=== PATIENT | female | born 1935 | race Caucasian/White ===

== ENCOUNTER → 2024-04-09 | Outpatient (CLI) | payer MEDICARE, BC, SELFPAY ==
[2024-04-09 09:33] LABS: Basophils # (Auto) 0.1 Thou/mm3 (0.0-0.2); Basophils % (Auto) 1 % (0-2.5); Eosinophils # (Auto) 0.1 Thou/mm3 (0.0-0.5); Eosinophils % (Auto) 1 % (0-10); Hematocrit 35.1 % (36.0-46.0); Hemoglobin 11.8 g/dL (12.0-16.0); Immature Granulocytes % (Auto) 0 % (0-0); Immature Granulocytes Auto 0.02 Thou/mm3 (0.00-0.00); Lymphocytes # (Auto) 3.2 Thou/mm3 (1.0-4.8); Lymphocytes % (Auto) 39 % (10-50); Mean Corpuscular HGB Conc 33.6 g/dl (31.0-37.0); Mean Corpuscular Hemoglobin 30.6 pg (25.0-35.0); Mean Corpuscular Volume 91 fL (80-100); Monocytes # (Auto) 0.8 Thou/mm3 (0.0-0.8); Monocytes % (Auto) 10 % (0-12); Neutrophils # (Auto) 4.1 Thou/mm3 (1.8-7.7); Neutrophils % (Auto) 49 % (37-80); Nucleated Red Blood Cell % 0 /100 WBC (0); Platelet Count 363 Thou/mm3 (140-440); RDW Standard Deviation 43.8 fL (36.4-46.3); Red Blood Count 3.85 Miln/mm3 (4.00-5.20); White Blood Count 8.3 Thou/mm3 (3.6-11.0)
[2024-04-09 09:43] LABS: Glucose Estimated Average 143 mg/dL (80-131); Hemoglobin A1C 6.6 % Hgb (4.8-6.0)
[2024-04-09 09:45] LABS: Creatinine MALB Rnd Ur 74 mg/dL (30-125); Microalbumin Creat Ratio 5 mg/gCrea (<30); Microalbumin, Random Urine 4 mg/L (0-300)
[2024-04-09 09:45] LABS: Alanine Aminotransferase 15 U/L (10-49); Albumin, Serum 4.5 gm/dL (3.4-4.8); Alkaline Phosphatase 56 U/L (46-116); Anion Gap 7 (7-16); Aspartate Amino Transferase 19 U/L (0-34); BUN/Creatinine Ratio 17 Ratio (12-20); Bilirubin,Total 0.6 mg/dL (0.3-1.2); Blood Urea Nitrogen 17 mg/dL (9-23); Calcium 10.4 mg/dL (8.3-10.6); Calcium (Corrected) 10.4 mg/dL (8.5-10.1); Carbon Dioxide 26.5 mMol/L (20.0-31.0); Cardiac Risk Estimate 2.7 RATIO (3.7-5.6); Chloride 102 mMol/L (98-107); Cholesterol 143 mg/dL (132-200); Globulin 2.2 gm/dL (2.3-3.5); Glucose 158 mg/dL (74-106); HDL Cholesterol 53 mg/dL (40-60); LDL Cholesterol,Calculated 67 mg/dL (0-130); Osmolality,Calculated 274 (275-295); Phosphorous 4.5 mg/dL (2.4-5.1); Potassium 4.4 mMol/L (3.4-5.1); Sodium 135 mMol/L (136-145); Total Protein 6.7 gm/dL (5.7-8.2); Triglycerides 114 mg/dL (30-150); eGFR 55 See Note
== END | disposition home or self-care (01) ==
LOC: COPL 08:29
PROVIDERS: PCP Family Medicine; Referring Provider Specialist; Visit Provider Internal Medicine Endocrinology, Diabetes & Metabolism
DX: E11.65 Type 2 diabetes mellitus with hyperglycemia (principal); I11.0 Hypertensive heart disease with heart failure
CPT/HCPCS: 36415; 80053; 80061; 82043; 82570; 83036; 84100; 85025

== ENCOUNTER 2024-04-15 09:30 | Emergency (ER) | payer MEDICARE, BC, SELFPAY ==
[2024-04-15 09:50] VITALS: BP 182/73; PULSE 68; RESP 18; TEMP 36.6; O2SAT 99; BMI 25.0
--- NOTE | 2024-04-15 10:08 | EKG_ITS ---
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
--- NOTE | 2024-04-15 10:11 | EDNOTE_ITS ---
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 Patient states while sitting in the car, just prior to walking in to the doctors office, she felt flushed and my head and face were on fire . States she was able to walk in to the doctors office where she sat on a chair and staff called 911. Per medics, when they arrived patient was hypertensive SBP 200's and repeat b/p was 174/108. Prehospital BS 179. On arrival to ED patient reports feeling improved and has no complaints. Denies fevers, chills, chest pain, cough, shortness of breath, abdominal pain, n/v/d, or urinary symptoms. Related Data Home Medications ?Medication ?Instructions ?Recorded ?Confirmed Metformin Hcl 1,000 mg PO BID DIABETES ##0 03/08/09 diltiazem HCl 240 mg 240 mg PO HS High Blood Pressure 03/08/09 capsule,extended release 24 hr ##0 (Cardizem CD) hydrochlorothiazide 25 mg tablet 25 mg PO QOD HBP/ DIURETIC #0 tabs 04/29/14 insulin glargine 100 unit/mL (3 60 unit subcut QDAY Diabetes ##0 04/29/14 mL) subcutaneous pen (Lantus Solostar U-100 Insulin) metoprolol succinate 25 mg 25 mg PO QDAY High Blood Pressure 04/29/14 tablet,extended release 24 hr ##0 (Toprol XL) Losartan Potassium * (COZAAR *) 50 mg PO BID #0 tabs 03/22/16 glipizide 5 mg tablet mg PO QDAY Diabetes ##0 03/22/16 glipizide 5 mg tablet 2.5 mg PO HS #0 tabs 03/23/16 Allergies Allergy/AdvReac Type Severity Reaction Status Date / Time Penicillins Allergy Severe Rash Verified 03/28/22 11:30 Review of Systems Review of Systems Narrative Review of Systems: Gen: No fever, no chills, no weight loss EYES: No discharge, no visual changes, no pain HEENT: No ear pain, no congestion, no sore throat PULM: no shortness of breath, no cough, no congestion CV: No chest pain, no dyspnea on exertion, no palpitations, no chest tightness GI: No nausea, no vomiting, no diarrhea, no pain, no constipation : No frequency, no urgency,? no dysuria Musc/skel: No joint pain, no back pain Skin: No rash, no ecchymosis, no lesions Psyc: No hallucinations, no depression Heme/Lymph: No easy bleeding or bruising tendencies Neuro: No weakness, no headache Past Medical History Past Medical History CARDIAC: Positive Cardiac Disorders, Cardiac Arrhythmia and Atrial Fibrillation; Negative Congestive Heart Failure RESPIRATORY: Negative Chronic Obstructive Pulmonary Disease (COPD) GENITOURINARY: Negative Renal Disease ENDOCRINE: Negative Diabetes Mellitus Type 1 or Diabetes Mellitus Type 2 OTHER HISTORY: Negative Blood Transfusions Surgical History SURGICAL: Positive Pacemaker Social History SMOKING STATUS: Never smoker ED Exam Narrative Physical exam: GENERAL APPEARANCE: AxOx4, no obvious distress, nontoxic appearing HEENT: NC, AT. MMM. EOMI, clear conjunctiva, oropharynx clear. NECK: Supple without lymphadenopathy. No stiffness or restricted ROM. HEART: Normal rate and regular rhythm, normal S1/S1, no m/r/g LUNGS: CTAB, moving air well. No crackles or wheezes are heard. ABDOMEN: Soft, nontender, nondistended with good bowel sounds heard. BACK: No midline C/T/L spine pain or deformity, No CVAT, no obvious deformity. EXTREMITIES: Without cyanosis, clubbing or edema. MUSCULOSKELETAL: FROM of all major joints, no chest tenderness NEUROLOGICAL: Grossly nonfocal. Alert and oriented, moving all 4 extremities. CN not formally tested but appear grossly intact. Skin: Warm and dry without any rash. Course Quality Measures none Orders Category Date Time Status EKG (ED ONLY) *Do not use* NOW Care 04/15/24 10:08 Completed EKG (ED Only) Stat Exams 04/15/24 10:08 Draft CBC Stat Lab 04/15/24 11:57 Completed CMP [Comprehensive Metabolic Panel] Stat Lab 04/15/24 11:57 Completed Troponin I Stat Lab 04/15/24 11:57 Completed Reevaluation(s) Reevaluation #1: Patient has no complaints at this time, discussed plan to perform ekg and labs. Time: 10:05 Reevaluation #2: Patient reports she was going to see her sheriff's officer today to get new glasses. Patient remains clinically stable throughout the emergency department visit. We reviewed all the results, analysis, and treatment plans. Patient is amenable to discharge. Strict return precautions were outlined. Patient was discharged in stable condition. Time: 12:58 Vital Signs Vital signs: Vital Signs Temperature 97.9 F 04/15/24 09:50 Pulse Rate 68 04/15/24 09:50 Respiratory Rate 18 04/15/24 09:50 Blood Pressure 182/73 H 04/15/24 09:50 Pulse Oximetry (%) 99 04/15/24 09:50 Oxygen Delivery Method Room Air 04/15/24 09:50 Pulse ox is 99% on room air which is adequate. [facility] Patient data External records reviewed:: [facility] previous records (I reviewed ED visit on 03/28/2022 for closed head injury ) and EMS form Clinical information provided by:: patient and EMS Social determinants that could affect healthcare access:: none Patient has the following chronic illnesses:: AFib, NE, s/p pacemaker placement, diabetes How is presenting disease/condition affected by chronic disease/condition?: e xacerbated by Evaluation data The following diagnostics were reviewed and interpreted by me:: EKG tracing(s) (Normal sinus rhythm, HR 63, no acute ST or T-wave changes, no STEMI. ) Lab and/or radiology exams considered but not ordered:: None Interpretation Summary: As noted above Medications Medications considered but not ordered:: None Medication administrations:: None Consultations Consultation(s) initiated? (list below): No Diagnosis Differential Diagnosis ED Complaint MDM: Dehydration, HAJA, electrolyte abnormalities Most likely diagnosis given after review of the tests above:: Pre-syncope Admission Indicated Admission indicated?: not indicated Explain why admission is indicated or not indicated:: Feels improved, does not meet admission criteria. Admission Request Was there a request for admission?: No Disposition Plan Disposition Plan: Discharge Discharge Attestation Discharge Attestation: The patient and all family members were given an opportunity to ask questions and understood the discharge instructions. Discharge instructions specifically effects, indications for sooner follow up or return to the emergency department, and the expected course of current diagnosis. Patient condition: Stable Medical Decision Making Differential Diagnosis Differential Diagnosis: Dehydration, HAJA, electrolyte abnormalities Lab Data 04/15/24 11:57 04/15/24 11:57 Labs: Lab Results 04/15/24 Range/Units 11:57 WBC 7.3 (3.6-11.0) Thou/mm3 RBC 3.68 L (4.00-5.20) Miln/mm3 Hgb 11.2 L (12.0-16.0) g/dL Hct 32.4 L (36.0-46.0) % MCV 88 (80-100) fL MCH 30.4 (25.0-35.0) pg MCHC 34.6 (31.0-37.0) g/dl RDW Std Deviation 42.3 (36.4-46.3) fL Plt Count 302 D (140-440) Thou/mm3 Neut % (Auto) 50 (37-80) % Lymph % (Auto) 41 (10-50) % [place] % (Auto) 8 (0-12) % Eos % (Auto) 0 (0-10) % Baso % (Auto) 1 (0-2.5) % Neut # (Auto) 3.7 (1.8-7.7) Thou/mm3 Lymph # (Auto) 3.0 (1.0-4.8) Thou/mm3 [place] # (Auto) 0.6 (0.0-0.8) Thou/mm3 Eos # (Auto) 0.0 (0.0-0.5) Thou/mm3 Baso # (Auto) 0.1 (0.0-0.2) Thou/mm3 Immature Gran # (Auto) 0.02 H (0.00-0.00) Thou/mm3 Absolute Nucleated RBC 0.00 (0.00-0.00) Thou/mm3 Immature Gran % 0 (0-0) % Nucleated RBC % 0 (0) /100 WBC Sodium 133 L (136-145) mMol/L Potassium 3.4 (3.4-5.1) mMol/L Chloride 99 (98-107) mMol/L Carbon Dioxide 23.9 (20.0-31.0) mMol/L Anion Gap 10 (7-16) BUN 14 (9-23) mg/dL Creatinine 0.9 (0.6-1.3) mg/dL Estim Creat Clear Calc 40.4 L (>60) mL/min eGFR > 60 (60 - ) See Note BUN/Creatinine Ratio 16 (12-20) Ratio Glucose 115 H (74-106) mg/dL Calculated Osmolality 267 L (275-295) Calcium 9.9 (8.3-10.6) mg/dL Corrected Calcium 9.9 (8.5-10.1) mg/dL Total Bilirubin 0.7 (0.3-1.2) mg/dL AST 19 (0-34) U/L ALT 13 (10-49) U/L Alkaline Phosphatase 50 (46-116) U/L Troponin I < 0.020 (0.0-0.045) ng/mL Total Protein 6.6 (5.7-8.2) gm/dL Albumin 4.4 (3.4-4.8) gm/dL Globulin 2.2 L (2.3-3.5) gm/dL Albumin/Globulin Ratio 2.0 (1.2-2.2) Discharge Plan Plan Patient Disposition: HOME (Self Care) Prescriptions/Referrals Prescriptions/Med Rec: No Action diltiazem HCl [Cardizem CD] 240 MG capsule,extended release 24hr 240 mg PO HS Qty: 0 Metformin Hcl 1,000 MG tablet 1,000 mg PO BID Qty: 0 metoprolol succinate [Toprol XL] 25 MG tablet extended release 24 hr 25 mg PO QDAY Qty: 0 insulin glargine [Lantus Solostar U-100 Insulin] 3 ML insulin pen 60 unit Sub-Q QDAY Qty: 0 hydrochlorothiazide 25 MG tablet 25 mg PO QOD Qty: 0 glipizide 5 MG tablet PO QDAY Qty: 0 Losartan Potassium * (COZAAR *) 50 MG tablet 50 mg PO BID Qty: 0 glipizide 5 MG tablet 2.5 mg PO HS Qty: 0 Referrals: Michaela Palma MD [Primary Care Provider] - In 1 week Problem List Clinical Impression: Pre-syncope Patient/Caregiver Discharge Instructions Education Materials: ED Near-Fainting, Uncertain Cause Additional Instructions: Follow-up your primary doctor in 2-3 days for recheck. You can return to the emergency department sooner if symptoms worsen or for any new or concerning issues Print Language: [place] African Stand Alone Forms: Marlin Award Info., Patient Portal Info Letter
[2024-04-15 12:23] LABS: Basophils # (Auto) 0.1 Thou/mm3 (0.0-0.2); Basophils % (Auto) 1 % (0-2.5); Eosinophils % (Auto) 0 % (0-10); Hematocrit 32.4 % (36.0-46.0); Hemoglobin 11.2 g/dL (12.0-16.0); Immature Granulocytes % (Auto) 0 % (0-0); Immature Granulocytes Auto 0.02 Thou/mm3 (0.00-0.00); Lymphocytes % (Auto) 41 % (10-50); Mean Corpuscular HGB Conc 34.6 g/dl (31.0-37.0); Mean Corpuscular Hemoglobin 30.4 pg (25.0-35.0); Mean Corpuscular Volume 88 fL (80-100); Monocytes # (Auto) 0.6 Thou/mm3 (0.0-0.8); Monocytes % (Auto) 8 % (0-12); Neutrophils # (Auto) 3.7 Thou/mm3 (1.8-7.7); Neutrophils % (Auto) 50 % (37-80); Nucleated Red Blood Cell % 0 /100 WBC (0); Platelet Count 302 Thou/mm3 (140-440); RDW Standard Deviation 42.3 fL (36.4-46.3); Red Blood Count 3.68 Miln/mm3 (4.00-5.20); White Blood Count 7.3 Thou/mm3 (3.6-11.0)
[2024-04-15 12:38] VITALS: BP 138/84; PULSE 72; RESP 17; TEMP 36.4; O2SAT 95
[2024-04-15 12:49] LABS: Alanine Aminotransferase 13 U/L (10-49); Albumin, Serum 4.4 gm/dL (3.4-4.8); Alkaline Phosphatase 50 U/L (46-116); Anion Gap 10 (7-16); Aspartate Amino Transferase 19 U/L (0-34); BUN/Creatinine Ratio 16 Ratio (12-20); Bilirubin,Total 0.7 mg/dL (0.3-1.2); Blood Urea Nitrogen 14 mg/dL (9-23); Calcium 9.9 mg/dL (8.3-10.6); Calcium (Corrected) 9.9 mg/dL (8.5-10.1); Carbon Dioxide 23.9 mMol/L (20.0-31.0); Chloride 99 mMol/L (98-107); Creatinine (Component) 0.9 mg/dL (0.6-1.3); Estimated Creatinine Clearance 40.4 mL/min (>60); Globulin 2.2 gm/dL (2.3-3.5); Glucose 115 mg/dL (74-106); Osmolality,Calculated 267 (275-295); Potassium 3.4 mMol/L (3.4-5.1); Sodium 133 mMol/L (136-145); Total Protein 6.6 gm/dL (5.7-8.2); Troponin I < 0.020 ng/mL (0.0-0.045); eGFR > 60 See Note
[2024-04-15 13:07] VITALS: BP 159/62; PULSE 76; RESP 14; TEMP 36.6; O2SAT 98
== END 2024-04-15 13:08 | disposition home or self-care (01) ==
PROVIDERS: Emergency Provider Emergency Medicine; PCP Family Medicine
DX: R55 Syncope and collapse (principal); I44.0 Atrioventricular block, first degree; I48.91 Unspecified atrial fibrillation; I25.2 Old myocardial infarction; Z95.0 Presence of cardiac pacemaker
CPT/HCPCS: 36415; 80053; 84484; 85025; 93005; 99283

== ENCOUNTER → 2024-05-02 | Outpatient (CLI) | payer MEDICARE, BC, SELFPAY ==
--- NOTE | 2024-05-02 10:21 | XR_ITS ---
Examination: Shoulder,right, 3 views Technique: Shoulder AP internal rotation, AP external rotation, Y view shoulder, 3 views Exam date and time :May 02, 2024 1025 hours INDICATIONS: Right shoulder pain beginning 4 days ago. FINDINGS: Moderate to advanced narrowing glenohumeral joint No fracture or shoulder dislocation No AC joint separation IMPRESSION: Moderate to advanced osteoarthritis glenohumeral joint
== END | disposition home or self-care (01) ==
PROVIDERS: PCP Physician Assistant; Referring Provider Physician Assistant; Visit Provider Physician Assistant
DX: M19.011 Primary osteoarthritis, right shoulder (principal)
CPT/HCPCS: 73030

== ENCOUNTER 2024-06-06 05:49 | Emergency (ER) | payer MEDICARE, BC, SELFPAY ==
[2024-06-06 06:00] VITALS: BP 142/62; PULSE 77; RESP 20; TEMP 36.6; O2SAT 99
--- NOTE | 2024-06-06 06:04 | PD.EDADULT ---
ED General RME/HPI General Chief complaint: Dizziness Stated complaint: DIZZINESS Time Seen by Provider: 06/06/24 06:26 Arrival date/time: 06/06/24 05:49 RME / HPI RME / HPI narrative: DR. RUDD MAIN ED EVALUATION: 88 year old female with past medical history significant for vertigo, atrial fibrillation, MD, s/p pacemaker placement, diabetes presents to the Emergency Department BIB from home with complaints of dizziness. Symptoms are moderate. Associated symptoms include nausea. Patient denies any tobacco, alcohol, or substance use. Related Data Home Medications ?Medication ?Instructions ?Recorded ?Confirmed Metformin Hcl 1,000 mg PO BID DIABETES ##0 03/08/09 diltiazem HCl 240 mg 240 mg PO HS High Blood Pressure 03/08/09 capsule,extended release 24 hr ##0 (Cardizem CD) hydrochlorothiazide 25 mg tablet 25 mg PO QOD HBP/ DIURETIC #0 tabs 04/29/14 insulin glargine 100 unit/mL (3 60 unit subcut QDAY Diabetes ##0 04/29/14 mL) subcutaneous pen (Lantus Solostar U-100 Insulin) metoprolol succinate 25 mg 25 mg PO QDAY High Blood Pressure 04/29/14 tablet,extended release 24 hr ##0 (Toprol XL) Losartan Potassium * (COZAAR *) 50 mg PO BID #0 tabs 03/22/16 glipizide 5 mg tablet mg PO QDAY Diabetes ##0 03/22/16 glipizide 5 mg tablet 2.5 mg PO HS #0 tabs 03/23/16 Previous Rx's ?Medication ?Instructions ?Recorded meclizine 25 mg tablet 25 mg PO BID PRN dizziness #10 tabs 06/06/24 Allergies Allergy/AdvReac Type Severity Reaction Status Date / Time Penicillins Allergy Severe Rash Verified 03/28/22 11:30 Review of Systems Review of Systems Systems Reviewed: All systems reviewed, normal except as documented Narrative Review of Systems: GEN: No fever, no chills, no weight loss EYES: No discharge, no visual changes, no pain HEENT: No ear pain, no congestion, no sore throat PULM: No shortness of breath, no cough, no congestion CV: No chest pain, no dyspnea on exertion, no palpitations GI: + nausea, no vomiting, no diarrhea, no pain, no constipation : No frequency, no urgency and no dysuria MUSC/SKEL: No joint pain, no back pain SKIN: No rash PSYCH: No hallucinations, no depression HEME/LYMPH: No easy bleeding or bruising tendencies NEURO: No weakness, no headache, + dizziness Past Medical History Past Medical History CARDIAC: Positive Cardiac Arrhythmia and Atrial Fibrillation; Negative Cardiac Disorders or Congestive Heart Failure RESPIRATORY: Negative Chronic Obstructive Pulmonary Disease (COPD) or Asthma GENITOURINARY: Negative Renal Disease ENDOCRINE: Negative Diabetes Mellitus Type 1 or Diabetes Mellitus Type 2 HEMATOLOGIC: Negative Sickle Cell Disease OTHER HISTORY: Negative Blood Transfusions Surgical History SURGICAL: Positive Pacemaker Social History SMOKING STATUS: Never smoker ED Exam Narrative Physical exam: GENERAL APPEARANCE: alert and oriented x 4, well-developed, well-nourished, no acute distress VITALS: All vitals were reviewed and the pulse ox is 95% on room air, which is normal according to my interpretation. HEENT: Normocephalic, atraumatic; pupils equal, round, reactive to light; EOMI; mucous membranes pink, moist; oropharynx clear NECK: Supple LUNGS: CTABL; no wheezes, no rales, no rhonchi HEART: Regular rate, regular rhythm; normal S1, S2; no murmurs ABDOMEN: non distended; normal BS; soft, no tenderness, no guarding, no rebound; no masses, no organomegaly, no hernia BACK: no CVA tenderness EXTREMITIES: atraumatic; no edema NEUROLOGIC: awake; alert and oriented x4; cranial nerves II-XII grossly intact; no focal sensory or motor deficits PSYCHIATRIC: appropriate mood and affect SKIN: warm, dry, normal color; no rashes Course Quality Measures none Orders Category Date Time Status CT Screening NOW Care 06/06/24 06:51 Active [facility] NOW Care 06/06/24 06:48 Active EKG (ED ONLY) *Do not use* NOW Care 06/06/24 06:48 Completed Diabetic [Diet Carbohydrate Consistent] Diet 06/06/[address] angio carotid w head w Stat Exams 06/06/24 09:[address] head/brain wo con Stat Exams 06/06/24 06:48 Completed EKG (ED Only) Stat Exams 06/06/24 06:48 Draft XR chest 1V portable Stat Exams 06/06/24 06:48 Completed B-Type Natriuretic Peptide Stat Lab 06/06/24 07:08 Completed CBC Stat Lab 06/06/24 07:08 Completed Comprehensive Metabolic Panel Stat Lab 06/06/24 07:08 Completed Lipase Stat Lab 06/06/24 07:08 Completed Magnesium Stat Lab 06/06/24 07:08 Completed Partial Thromboplastin Time Stat Lab 06/06/24 07:08 Completed Prothrombin Time with INR Stat Lab 06/06/24 07:08 Completed Troponin I Stat Lab 06/06/24 07:08 Completed UA, C/S IF [Urinalysis, C/S if Indicated] Stat Lab 06/06/24 07:40 Completed KCL 10% Liq UDC 15 ML Med 06/06/24 07:49 Discontinued 40 meq PO X1 ONE Magnesium Sulfate 2 GM Ivpb [Magnesium Sulfate Ivpb] Med 06/06/24 07:50 Discontinued 2 gm in 50 ml IV X1 Meclizine HCl [Antivert] Med 06/06/24 06:51 Discontinued 25 mg PO X1 ONE Ondansetron Inj [Zofran Inj] Med 06/06/24 06:51 Discontinued 4 mg IV X1 ONE POTASSIUM CHL 10 mEq IVPB [Kcl Ivpb] Med 06/06/24 07:50 Discontinued 10 meq in 100 ml IV Q1H Late Tray Request Routine Oth 06/06/24 08:22 Active Vital Signs Vital signs: Vital Signs Temperature 97.8 F 06/06/24 06:00 Pulse Rate 77 06/06/24 06:00 Respiratory Rate 20 06/06/24 06:00 Blood Pressure 142/62 H 06/06/24 06:00 Pulse Oximetry (%) 99 06/06/24 06:00 Oxygen Delivery Method Room Air 06/06/24 06:00 [facility] Patient data External records reviewed:: [facility] previous records (Reviewed last ED visit dated 04/15/24, discharged with the following: Pre-syncope) and EMS form Clinical information provided by:: patient and EMS Social determinants that could affect healthcare access:: none Patient has the following chronic illnesses:: vertigo, atrial fibrillation, MD, s/p pacemaker placement, diabetes How is presenting disease/condition affected by chronic disease/condition?: exacerbated by Evaluation data The following diagnostics were reviewed and interpreted by me:: lab results, radiology exam(s) and EKG tracing(s) (EKG at 0655 hours: sinus rhythm with first degree AV block, rate 71, left axis deviation,) Lab and/or radiology exams considered but not ordered:: none Interpretation Summary: Procedure(s): XR chest 1V portable Accession Number(s): [id number] cc: Urban Thapa MD; Mona Rudd MD; Michaela Palma MD~ Examination: AP chest single view Technique one AP portable upright chest single view Exam date and time: June 06, 2024 0725 hours Comparison August 09, 2015 INDICATIONS: Onset chest pain today FINDINGS: Heart size Cardiac leads satisfactory position. No pneumonia or pulmonary edema Moderate osteopenia IMPRESSION: No pneumonia or pulmonary edema Dictated By: Urban Thapa MD Procedure(s): CT head/brain wo con Accession Number(s): [id number] cc: Urban Thapa MD; Mona Rudd MD; Michaela Palma MD~ Examination: CT brain head without contrast. 2-D sagittal coronal reconstructions Date and time of exam:June 06, 2024 0854 hours INDICATIONS: Onset dizziness headaches today CTDI: vol (mGy):49.8 DLP: (mGycm):1095 Technique: Multiple CT axial sections of the brain have been obtained, 5 mm slice thickness. Contrast has not been administered. 2-D sagittal, coronal reconstructions have been obtained Low dose protocols were performed. One or more of the following dose reduction techniques were used; automated exposure control, adjustment of the mA and/or KV according to patient size, use of iterative reconstruction technique. Findings: No significant ventricular enlargement. Intra-axial or extra-axial hemorrhage density is not seen. No mass effect or midline shift Basal cisterns are not remarkable. Fourth ventricle is midline. Cranial vault intact. Impression: Negative for acute hemorrhage, mass effect or midline shift Advise clinical correlation follow-up accordingly Dictated By: Urban Thapa MD Procedure(s): CT angio carotid w head w Accession Number(s): [id number] cc: Urban Thapa MD; Mona Rudd MD; Michaela Palma MD~ Examination: CTA carotids with intravenous contrast CTA brain, head with intravenous contrast. 2-D sagittal, coronal reconstructions. 3-D reconstructions. Exam date and time: June 06, 2024 1027 hours INDICATIONS: Onset dizziness headaches altered mental status today CTDI: vol (mGy) 10.6 DLP: (mGycm) 425 Technique: Multiple CTA axial brain, head carotid images post intravenous contrast injection 75 cc, Isovue-370. 2-D sagittal, coronal reconstructions. 3-D reconstructions, 3-D post processing including vascular maximum intensity projection images. Low dose protocols were performed. One or more of the following dose reduction techniques were used; automated exposure control, adjustment of the mA and/or KV according to patient size, use of iterative reconstruction technique. Findings: Severe calcification right carotid bifurcation origin right internal carotid artery, estimated 50-70% stenosis Moderate calcification left carotid bifurcation origin left internal carotid artery 20-40% stenosis Distal internal carotid arteries do fill Mildly dominant right vertebral artery Codominant vertebral arteries with no critical stenoses No middle cerebral or anterior cerebral significant stenoses or occlusions 90% stenosis right posterior cerebral artery junction P2 P3 segments IMPRESSION: Heavy calcification right carotid bifurcation origin right internal carotid artery, 50-70% stenosis at the bifurcation and origin of the right internal carotid artery 20-40% stenosis left carotid bifurcation origin left internal carotid artery No middle cerebral or anterior cerebral artery significant stenoses or occlusions 90% stenosis right posterior cerebral artery junction P2 P3 segments Dictated By: Urban Thapa MD Medications Medications considered but not ordered:: none Medication administrations:: Medication Administration History Discontinued Medications Magnesium Sulfate (Magnesium Sulfate Ivpb) 2 gm in 50 mls @ 25 mls/hr IV X1 ONE Stop: 06/06/24 09:49 Last Infusion: 06/06/24 12:18 Dose: Infused Documented By: SL Admin: 06/06/24 09:57 Dose: 25 mls/hr Documented By: AA Potassium Chloride (Kcl Ivpb) 10 meq in 100 mls @ 100 mls/hr IV Q1H MYLES Stop: 06/06/24 10:49 Last Admin: 06/06/24 09:39 Dose: Not Given Documented By: NYA Non-Admin Reason: Cancelled by Provider Admin: 06/06/24 09:39 Dose: Not Given Documented By: NYA Non-Admin Reason: Cancelled by Provider Admin: 06/06/24 09:39 Dose: Not Given Documented By: NYA Non-Admin Reason: Cancelled by Provider Meclizine HCl (Meclizine Hcl 25 Mg Tablet) 25 mg PO X1 ONE Stop: 06/06/24 06:52 Last Admin: 06/06/24 07:10 Dose: 25 mg Documented By: KG Ondansetron HCl (Ondansetron Inj 2 Mg/Ml Inj 2 Ml) 4 mg IV X1 ONE; Protocol Stop: 06/06/24 06:52 Last Admin: 06/06/24 07:10 Dose: 4 mg Documented By: KG Potassium Chloride (Potassium Chloride 10% 20 Meq/15 Ml Udc) 40 meq PO X1 ONE Stop: 06/06/24 07:50 Last Admin: 06/06/24 09:56 Dose: 40 meq Documented By: NYA see above Consultations Consultation(s) initiated? (list below): No Diagnosis Differential Diagnosis ED Complaint MDM: Dizziness, vertigo, dehydration, electrolyte imbalance Most likely diagnosis given after review of the tests above:: Dizziness Vertigo Admission Indicated Admission indicated?: not indicated Explain why admission is indicated or not indicated:: Patient has no emergent abnormalities on his studies and can be managed on an outpatient basis. Admission Request Was there a request for admission?: No Disposition Plan Disposition Plan: Discharge Discharge Attestation Discharge Attestation: The patient and all family members were given an opportunity to ask questions and understood the discharge instructions. Discharge instructions specifically effects, indications for sooner follow up or return to the emergency department, and the expected course of current diagnosis. Patient condition: Stable Medical Decision Making Differential Diagnosis Differential Diagnosis: Dizziness, vertigo, dehydration, electrolyte imbalance Lab Data 06/06/24 07:08 06/06/24 07:08 Labs: Lab Results 06/06/24 06/06/24 Range/Units 07:08 07:40 WBC 5.5 (3.6-11.0) Thou/mm3 RBC 3.94 L (4.00-5.20) Miln/mm3 Hgb 12.2 (12.0-16.0) g/dL Hct 34.2 L (36.0-46.0) % MCV 87 (80-100) fL MCH 31.0 (25.0-35.0) pg MCHC 35.7 (31.0-37.0) g/dl RDW Std Deviation 42.2 (36.4-46.3) fL Plt Count 279 (140-440) Thou/mm3 Neut % (Auto) 52 (37-80) % Lymph % (Auto) 38 (10-50) % [place] % (Auto) 9 (0-12) % Eos % (Auto) 0 (0-10) % Baso % (Auto) 0 (0-2.5) % Neut # (Auto) 2.8 (1.8-7.7) Thou/mm3 Lymph # (Auto) 2.1 (1.0-4.8) Thou/mm3 [place] # (Auto) 0.5 (0.0-0.8) Thou/mm3 Eos # (Auto) 0.0 (0.0-0.5) Thou/mm3 Baso # (Auto) 0.0 (0.0-0.2) Thou/mm3 Immature Gran # (Auto) 0.01 H (0.00-0.00) Thou/mm3 Absolute Nucleated RBC 0.00 (0.00-0.00) Thou/mm3 Immature Gran % 0 (0-0) % Nucleated RBC % 0 (0) /100 WBC PT 11.2 (9.0-12.2) Seconds INR 1.0 (0.9-1.3) APTT 23.7 (22.0-36.0) Seconds Sodium 131 L (136-145) mMol/L Potassium 3.3 L (3.4-5.1) mMol/L Chloride 97 L (98-107) mMol/L Carbon Dioxide 23.0 (20.0-31.0) mMol/L Anion Gap 11 (7-16) BUN 14 (9-23) mg/dL Creatinine 0.9 (0.6-1.3) mg/dL Estim Creat Clear Calc 40.4 L (>60) mL/min eGFR > 60 (60 - ) See Note BUN/Creatinine Ratio 16 (12-20) Ratio Glucose 163 H (74-106) mg/dL Calculated Osmolality 267 L (275-295) Calcium 9.7 (8.3-10.6) mg/dL Corrected Calcium 9.7 (8.5-10.1) mg/dL Magnesium 1.4 L (1.6-2.6) mg/dL Total Bilirubin 0.8 (0.3-1.2) mg/dL AST 12 (0-34) U/L ALT 13 (10-49) U/L Alkaline Phosphatase 51 (46-116) U/L Troponin I < 0.020 (0.0-0.045) ng/mL B-Natriuretic Peptide 293 H (0-100) pg/mL Total Protein 6.3 (5.7-8.2) gm/dL Albumin 4.3 (3.4-4.8) gm/dL Globulin 2.0 L (2.3-3.5) gm/dL Albumin/Globulin Ratio 2.2 (1.2-2.2) Lipase 34 (12-53) U/L Ur Collection Type Clean Catch Urine Color Colorless A (Lt Yel-Yel) Urine Clarity Clear (Clear/Hazy) Urine pH 7.5 H (5.0-7.0) Ur Specific [place] 1.011 (1.001-1.035) Urine Protein Negative (Neg - Trace) Urine Glucose (UA) 1+ A (Negative) Urine Ketones Negative (Negative) Urine Blood Negative (Negative) Urine Nitrite Negative (Negative) Urine Bilirubin Negative (Negative) Urine Urobilinogen (Auto) Negative (0.0-1.0) mg/dL Ur Leukocyte Esterase Negative (Negative) Urine RBC 1 (0-3) /hpf Urine WBC < 1 (0-5) /hpf Ur Squamous Epith Cells 1 (0-5) /hpf Urine Bacteria Rare (None) Ur Culture Indicated? Not Indicated Discharge Plan Plan Patient Disposition: HOME (Self Care) Prescriptions/Referrals Prescriptions/Med Rec: New meclizine 25 mg tablet 25 mg PO BID PRN (Reason: dizziness) Qty: 10 0RF No Action diltiazem HCl [Cardizem CD] 240 MG capsule,extended release 24hr 240 mg PO HS Qty: 0 Metformin Hcl 1,000 MG tablet 1,000 mg PO BID Qty: 0 metoprolol succinate [Toprol XL] 25 MG tablet extended release 24 hr 25 mg PO QDAY Qty: 0 insulin glargine [Lantus Solostar U-100 Insulin] 3 ML insulin pen 60 unit Sub-Q QDAY Qty: 0 hydrochlorothiazide 25 MG tablet 25 mg PO QOD Qty: 0 glipizide 5 MG tablet PO QDAY Qty: 0 Losartan Potassium * (COZAAR *) 50 MG tablet 50 mg PO BID Qty: 0 glipizide 5 MG tablet 2.5 mg PO HS Qty: 0 Referrals: Michaela Palma MD [Primary Care Provider] - In 1 week Problem List Clinical Impression: Dizziness, Vertigo Patient/Caregiver Discharge Instructions Education Materials: ED BPV Vertigo Print Language: Kazakh Stand Alone Forms: Marlin Award Info., Patient Portal Info Letter
[2024-06-06 06:13] VITALS: BP 150/60; PULSE 72; PULSE 76; RESP 18; RESP 19; O2SAT 98; O2SAT 99
[2024-06-06 06:23] VITALS: BMI 23.3
--- NOTE | 2024-06-06 06:48 | EKG_ITS ---
[facility] Test Date: 2024-06-06 Pat Name: JARRET ZIEGLER Department: Room: - Gender: Female [employer]: : 1935 Requested By: Mona Moss Order Number: [id number] Reading MD: Mona Moss Measurements Intervals [place] Rate: 71 P: 34 [place]: 235 QRS: -32 QRSD: 144 T: 39 QT: 402 QTc: 438 Interpretive Statements SINUS RHYTHM WITH FIRST DEGREE AV BLOCK MARKED LEFT AXIS DEVIATION [QRS AXIS < -30] INTRAVENTRICULAR CONDUCTION DELAY [130+ ms QRS DURATION] Compared to ECG 04/15/2024 11:35:12 Intraventricular conduction delay now present Left ventricular hypertrophy no longer present ST (T wave) deviation no longer present /store/S0/[id number]/ecg/[id number].pdf
--- NOTE | 2024-06-06 06:48 | XR_ITS ---
Examination: CT brain head without contrast. 2-D sagittal coronal reconstructions Date and time of exam:June 06, 2024 0854 hours INDICATIONS: Onset dizziness headaches today CTDI: vol (mGy):49.8 DLP: (mGycm):1095 Technique: Multiple CT axial sections of the brain have been obtained, 5 mm slice thickness. Contrast has not been administered. 2-D sagittal, coronal reconstructions have been obtained Low dose protocols were performed. One or more of the following dose reduction techniques were used; automated exposure control, adjustment of the mA and/or KV according to patient size, use of iterative reconstruction technique. Findings: No significant ventricular enlargement. Intra-axial or extra-axial hemorrhage density is not seen. No mass effect or midline shift Basal cisterns are not remarkable. Fourth ventricle is midline. Cranial vault intact. Impression: Negative for acute hemorrhage, mass effect or midline shift Advise clinical correlation follow-up accordingly
--- NOTE | 2024-06-06 06:48 | XR_ITS ---
Examination: AP chest single view Technique one AP portable upright chest single view Exam date and time: June 06, 2024 0725 hours Comparison August 09, 2015 INDICATIONS: Onset chest pain today FINDINGS: Heart size Cardiac leads satisfactory position. No pneumonia or pulmonary edema Moderate osteopenia IMPRESSION: No pneumonia or pulmonary edema
[2024-06-06] MEDS: ONDANSETRON INJ 2 MG/ML INJ 2 ML 4 MG IV (07:10)
[2024-06-06] MEDS: MECLIZINE HCL 25 MG TABLET PO (07:10)
[2024-06-06 07:16] VITALS: PULSE 72
[2024-06-06 07:29] LABS: Basophils % (Auto) 0 % (0-2.5); Eosinophils % (Auto) 0 % (0-10); Hematocrit 34.2 % (36.0-46.0); Hemoglobin 12.2 g/dL (12.0-16.0); Immature Granulocytes % (Auto) 0 % (0-0); Immature Granulocytes Auto 0.01 Thou/mm3 (0.00-0.00); Lymphocytes # (Auto) 2.1 Thou/mm3 (1.0-4.8); Lymphocytes % (Auto) 38 % (10-50); Mean Corpuscular HGB Conc 35.7 g/dl (31.0-37.0); Mean Corpuscular Volume 87 fL (80-100); Monocytes # (Auto) 0.5 Thou/mm3 (0.0-0.8); Monocytes % (Auto) 9 % (0-12); Neutrophils # (Auto) 2.8 Thou/mm3 (1.8-7.7); Neutrophils % (Auto) 52 % (37-80); Nucleated Red Blood Cell % 0 /100 WBC (0); Platelet Count 279 Thou/mm3 (140-440); RDW Standard Deviation 42.2 fL (36.4-46.3); Red Blood Count 3.94 Miln/mm3 (4.00-5.20); White Blood Count 5.5 Thou/mm3 (3.6-11.0)
[2024-06-06 07:38] LABS: Partial Thromboplastin Time 23.7 Seconds (22.0-36.0); Prothrombin Time 11.2 Seconds (9.0-12.2)
[2024-06-06 07:42] LABS: B-Type Natriuretic Peptide 293 pg/mL (0-100)
[2024-06-06 07:45] LABS: Alanine Aminotransferase 13 U/L (10-49); Albumin, Serum 4.3 gm/dL (3.4-4.8); Albumin/Globulin Ratio 2.2 (1.2-2.2); Alkaline Phosphatase 51 U/L (46-116); Anion Gap 11 (7-16); Aspartate Amino Transferase 12 U/L (0-34); BUN/Creatinine Ratio 16 Ratio (12-20); Bilirubin,Total 0.8 mg/dL (0.3-1.2); Blood Urea Nitrogen 14 mg/dL (9-23); Calcium 9.7 mg/dL (8.3-10.6); Calcium (Corrected) 9.7 mg/dL (8.5-10.1); Chloride 97 mMol/L (98-107); Creatinine (Component) 0.9 mg/dL (0.6-1.3); Estimated Creatinine Clearance 40.4 mL/min (>60); Glucose 163 mg/dL (74-106); Lipase 34 U/L (12-53); Magnesium 1.4 mg/dL (1.6-2.6); Osmolality,Calculated 267 (275-295); Potassium 3.3 mMol/L (3.4-5.1); Sodium 131 mMol/L (136-145); Total Protein 6.3 gm/dL (5.7-8.2); Troponin I < 0.020 ng/mL (0.0-0.045); eGFR > 60 See Note
[2024-06-06 07:46] LABS: Collection Type, Urine Clean Catch
[2024-06-06 08:07] LABS: Bacteria,Urine Rare; Bilirubin,Urine Negative (Negative); Blood,Urine Negative (Negative); Clarity,Urine Clear (Clear/Hazy); Color,Urine Colorless (Lt Yel-Yel); Culture Indicated,Urine Not Indicated; Glucose, Urine 1+ (Negative); Ketones,Urine Negative (Negative); Leukocyte Esterase,Urine Negative (Negative); Nitrite,Urine Negative (Negative); PH,Urine 7.5 (5.0-7.0); Protein,Urine Negative (Neg - Trace); RBC,Urine 1 /hpf (0-3); Specific Gravity,Urine 1.011 (1.001-1.035); Squamous Epithelial Cell,Urine 1 /hpf (0-5); Urobilinogen,Urine Negative mg/dL (0.0-1.0); WBC,Urine < 1 /hpf (0-5)
[2024-06-06 08:29] VITALS: BP 134/110; PULSE 73; RESP 19; TEMP 36.8; O2SAT 97
--- NOTE | 2024-06-06 09:15 | XR_ITS ---
Examination: CTA carotids with intravenous contrast CTA brain, head with intravenous contrast. 2-D sagittal, coronal reconstructions. 3-D reconstructions. Exam date and time: June 06, 2024 1027 hours INDICATIONS: Onset dizziness headaches altered mental status today CTDI: vol (mGy) 10.6 DLP: (mGycm) 425 Technique: Multiple CTA axial brain, head carotid images post intravenous contrast injection 75 cc, Isovue-370. 2-D sagittal, coronal reconstructions. 3-D reconstructions, 3-D post processing including vascular maximum intensity projection images. Low dose protocols were performed. One or more of the following dose reduction techniques were used; automated exposure control, adjustment of the mA and/or KV according to patient size, use of iterative reconstruction technique. Findings: Severe calcification right carotid bifurcation origin right internal carotid artery, estimated 50-70% stenosis Moderate calcification left carotid bifurcation origin left internal carotid artery 20-40% stenosis Distal internal carotid arteries do fill Mildly dominant right vertebral artery Codominant vertebral arteries with no critical stenoses No middle cerebral or anterior cerebral significant stenoses or occlusions 90% stenosis right posterior cerebral artery junction P2 P3 segments IMPRESSION: Heavy calcification right carotid bifurcation origin right internal carotid artery, 50-70% stenosis at the bifurcation and origin of the right internal carotid artery 20-40% stenosis left carotid bifurcation origin left internal carotid artery No middle cerebral or anterior cerebral artery significant stenoses or occlusions 90% stenosis right posterior cerebral artery junction P2 P3 segments
--- NOTE | 2024-06-06 09:44 | CHAP ---
Patient appeared to be sleeping. Said a silent prayer by he door.
[2024-06-06] MEDS: POTASSIUM CHLORIDE 10% 20 MEQ/15 ML UDC 40 MEQ PO (09:56)
[2024-06-06] MEDS: Magnesium Sulfate 2 GM Ivpb 2 GM/50 ML BAG IV (09:57)
--- NOTE | 2024-06-06 10:28 | PC.NURSE ---
Patient to CT via gurney with Luis tellez.
[2024-06-06 10:59] VITALS: BP 146/63; PULSE 78; RESP 18; TEMP 36.3; O2SAT 95
== END 2024-06-06 12:39 | disposition home or self-care (01) ==
PROVIDERS: Emergency Provider Emergency Medicine; PCP Family Medicine
DX: R42 Dizziness and giddiness (principal); I48.91 Unspecified atrial fibrillation; Z95.0 Presence of cardiac pacemaker
CPT/HCPCS: 36415; 70450; 70496; 70498; 71045; 80053; 81001; 83690; 83735; 83880; 84484; 85025; 85610; 85730; 93005; 96365; 96366; 96374; 99285; A4649; J2405; J3475; Q9967; A9270

== ENCOUNTER → 2024-07-17 | Outpatient (CLI) | payer MEDICARE, BC, SELFPAY ==
[2024-07-17 15:40] LABS: Collection Type, Urine Clean Catch
[2024-07-17 16:47] LABS: Bacteria,Urine 2+; Bilirubin,Urine Negative (Negative); Blood,Urine Negative (Negative); Color,Urine Lt-Yellow (Lt Yel-Yel); Glucose, Urine Negative (Negative); Ketones,Urine Negative (Negative); Leukocyte Esterase,Urine Positive (Negative); Nitrite,Urine Negative (Negative); Protein,Urine Negative (Neg - Trace); RBC,Urine 4 /hpf (0-3); Specific Gravity,Urine 1.009 (1.001-1.035); Squamous Epithelial Cell,Urine < 1 /hpf (0-5); Urobilinogen,Urine Negative mg/dL (0.0-1.0); WBC,Urine 134 /hpf (0-5)
[2024-07-17 17:06] LABS: Clarity,Urine Hazy (Clear/Hazy)
== END | disposition home or self-care (01) ==
LOC: SLDO 15:31
PROVIDERS: PCP Nurse Practitioner Family; Referring Provider Nurse Practitioner Family; Visit Provider Nurse Practitioner Family
DX: N39.0 Urinary tract infection, site not specified (principal)
CPT/HCPCS: 81001; 87077; 87086; 87186

== ENCOUNTER → 2024-08-20 | Outpatient (CLI) | payer MEDICARE, BC, SELFPAY ==
[2024-08-20 10:25] LABS: Basophils # (Auto) 0.1 Thou/mm3 (0.0-0.2); Basophils % (Auto) 1 % (0-2.5); Eosinophils % (Auto) 0 % (0-10); Hematocrit 36.7 % (36.0-46.0); Hemoglobin 12.4 g/dL (12.0-16.0); Immature Granulocytes % (Auto) 0 % (0-0); Immature Granulocytes Auto 0.01 Thou/mm3 (0.00-0.00); Lymphocytes # (Auto) 2.5 Thou/mm3 (1.0-4.8); Lymphocytes % (Auto) 37 % (10-50); Mean Corpuscular HGB Conc 33.8 g/dl (31.0-37.0); Mean Corpuscular Hemoglobin 30.6 pg (25.0-35.0); Mean Corpuscular Volume 91 fL (80-100); Monocytes # (Auto) 0.8 Thou/mm3 (0.0-0.8); Monocytes % (Auto) 11 % (0-12); Neutrophils # (Auto) 3.5 Thou/mm3 (1.8-7.7); Neutrophils % (Auto) 51 % (37-80); Nucleated Red Blood Cell % 0 /100 WBC (0); Platelet Count 362 Thou/mm3 (140-440); RDW Standard Deviation 41.2 fL (36.4-46.3); Red Blood Count 4.05 Miln/mm3 (4.00-5.20); White Blood Count 6.8 Thou/mm3 (3.6-11.0)
[2024-08-20 10:34] LABS: Glucose Estimated Average 148 mg/dL (80-131); Hemoglobin A1C 6.8 % Hgb (4.8-6.0)
[2024-08-20 11:00] LABS: Alanine Aminotransferase 11 U/L (10-49); Albumin, Serum 4.3 gm/dL (3.4-4.8); Albumin/Globulin Ratio 2.3 (1.2-2.2); Alkaline Phosphatase 45 U/L (46-116); Anion Gap 5 (7-16); Aspartate Amino Transferase 15 U/L (0-34); BUN/Creatinine Ratio 12 Ratio (12-20); Bilirubin,Direct 0.2 mg/dL (0.0-0.3); Bilirubin,Total 0.6 mg/dL (0.3-1.2); Blood Urea Nitrogen 11 mg/dL (9-23); Carbon Dioxide 28.2 mMol/L (20.0-31.0); Cardiac Risk Estimate 2.8 RATIO (3.7-5.6); Chloride 99 mMol/L (98-107); Cholesterol 182 mg/dL (132-200); Creatinine (Component) 0.9 mg/dL (0.6-1.3); Globulin 1.9 gm/dL (2.3-3.5); Glucose 145 mg/dL (74-106); HDL Cholesterol 64 mg/dL (40-60); LDL Cholesterol,Calculated 93 mg/dL (0-130); Osmolality,Calculated 266 (275-295); Phosphorous 4.1 mg/dL (2.4-5.1); Potassium 4.7 mMol/L (3.4-5.1); Sodium 132 mMol/L (136-145); Thyroid Stimulating Hormone 1.31 uIU/mL (0.55-4.78); Total Protein 6.2 gm/dL (5.7-8.2); Triglycerides 124 mg/dL (30-150); eGFR > 60 See Note
[2024-08-20 11:47] LABS: Creatinine MALB Rnd Ur 75 mg/dL (30-125); Microalbumin Creat Ratio 13 mg/gCrea (<30); Microalbumin, Random Urine 10 mg/L (0-300)
== END | disposition home or self-care (01) ==
LOC: COPL 09:37
PROVIDERS: PCP Family Medicine; Referring Provider Internal Medicine Endocrinology, Diabetes & Metabolism; Visit Provider Specialist
DX: E78.00 Pure hypercholesterolemia, unspecified (principal); I11.0 Hypertensive heart disease with heart failure; E11.9 Type 2 diabetes mellitus without complications; E03.9 Hypothyroidism, unspecified
CPT/HCPCS: 36415; 80053; 80061; 82043; 82248; 82570; 83036; 84100; 84443; 85025

== ENCOUNTER 2024-09-13 18:45 | Emergency (ER) | payer MEDICARE, BC, SELFPAY ==
--- NOTE | 2024-09-13 18:51 | XR_ITS ---
Examination: CT cervical spine without contrast 2-D sagittal reconstructions 2-D coronal reconstructions 3-D reconstructions. Exam date and time:September 13, 20242026 hours INDICATIONS: Ground-level fall today with injury to the neck, neck pain CTDI:vol (mGy) 6.99 DLP: (mGycm) 150 Technique: Multiple 2 mm axial sections of the cervical spine have been obtained. The coronal and sagittal reconstructions have been obtained. 3-D reconstructions have been obtained. Low dose protocols were performed. One or more of the following dose reduction techniques were used; automated exposure control, adjustment of the mA and/or KV according to patient size, use of iterative reconstruction technique. Findings: Axial sections demonstrate intact base of the skull. C1 exhibit satisfactory relationship to the odontoid. No acute cervical vertebral body fracture seen. Alignment posterior spinous processes satisfactory. Impression: No acute cervical fracture.
--- NOTE | 2024-09-13 18:51 | XR_ITS ---
Examination: CT brain head without contrast. 2-D sagittal coronal reconstructions Date and time of exam:September 13, 20242026 hours INDICATIONS: Ground-level fall today with injury to the head, head pain CTDI: vol (mGy):21.3 DLP: (mGycm):1043 Technique: Multiple CT axial sections of the brain have been obtained, 5 mm slice thickness. Contrast has not been administered. 2-D sagittal, coronal reconstructions have been obtained Low dose protocols were performed. One or more of the following dose reduction techniques were used; automated exposure control, adjustment of the mA and/or KV according to patient size, use of iterative reconstruction technique. Findings: No significant ventricular enlargement. Intra-axial or extra-axial hemorrhage density is not seen. No mass effect or midline shift Basal cisterns are not remarkable. Fourth ventricle is midline. Cranial vault intact. Impression: Negative for acute hemorrhage, mass effect or midline shift
--- NOTE | 2024-09-13 18:51 | XR_ITS ---
Examination: Right knee 2 views Technique AP lateral right knee 2 views Standing time: September 13, 20242006 hours INDICATIONS: Patient fell today with into the knee, knee pain. FINDINGS: No acute fracture No dislocation A small knee effusion Heavy vascular calcification IMPRESSION: No acute fracture
--- NOTE | 2024-09-13 18:51 | XR_ITS ---
Examination:Right hip AP, lateral, AP pelvis 3 views Technique: Hip AP lateral, AP pelvis, 3 views Exam date and time: September 13, 2024 at 2005 hours INDICATIONS: Patient fell today with injury of the right hip, right hip pain FINDINGS: No right hip fracture or dislocation Left hip bones of the pelvis intact IMPRESSION: No acute hip or pelvic fracture Repeat the AP pelvis film in 1-2 days as clinically warranted
--- NOTE | 2024-09-13 18:55 | EDNOTE_ITS ---
ED General RME/HPI General Chief complaint: Fall Stated complaint: FALL Time Seen by Provider: 09/13/24 18:46 Arrival date/time: 09/13/24 18:45 RME / HPI RME / HPI narrative: 88-year-old female patient with significant history of diabetes hypertension, chronic A-fib, came in for evaluation regarding ground-level fall. Patient sustained a ground-level fall after patient lost balance, landing on her back, resulting into neck pain, headache hip pain and knee pain on the right side. No LOC noted no nausea or vomiting noted. Denies any other complaints. Patient is taking blood thinner. No medication was given prior to ER visit. Related Data Home Medications ?Medication ?Instructions ?Recorded ?Confirmed Metformin Hcl 1,000 mg PO BID DIABETES ##0 03/08/09 diltiazem HCl 240 mg 240 mg PO HS High Blood Pres sure 03/08/09 capsule,extended release 24 hr ##0 (Cardizem CD) hydrochlorothiazide 25 mg tablet 25 mg PO QOD HBP/ DIU RETIC #0 tabs 04/29/14 insulin glargine 100 unit/mL (3 60 unit subcut QDAY Di abetes ##0 04/29/14 mL) subcutaneous pen (Lantus Solostar U-100 Insulin) metoprolol succinate 25 mg 25 mg PO QDAY High Blood Pr essure 04/29/14 tablet,extended release 24 hr ##0 (Toprol XL) Losartan Potassium * (COZAAR *) 50 mg PO BID #0 tabs 1 05/22/15 glipizide 5 mg tablet mg PO QDAY Diabetes ##0 110 07/06 glipizide 5 mg tablet 2.5 mg PO HS #0 tabs 6 Previous Rx's ?Medication ?Instructions ?Recorded meclizine 25 mg tablet 25 mg PO BID PRN dizziness # 10 tabs 06/06/24 Allergies Allergy/AdvReac Type Severity Reaction Status Date / Time Penicillins Allergy Severe Rash Verified 03/28/22 11:30 Review of Systems Review of Systems Narrative Review of Systems: Review of system reviewed and within normal limits except mentioned in HPI ED Exam Narrative Physical exam: VITAL SIGNS: Reviewed. GENERAL APPEARANCE: Alert and interactive, follows commands, no acute distress, HEAD AND FACE: Non-traumatic. ENT: PERRL, pink conjunctivitis, eyelid no trauma, Mucous membrane moist. NECK: Supple, nontender, no nuchal rigidity. CHEST: No tenderness, no crepitus, no paradoxical movement, no retractions. LUNGS: Clear, well ventilated, symmetric, no rales, no wheezing, no ronchi, no stridor, good breath sounds bilaterally. HEART: Regular rate, regular rhythm, no murmur, no gallops. ABDOMEN: Soft, positive bowel sounds, nondistended, no guarding, nontender, no rebound, no masses, RECTAL: Deferred. GENITAL: Deferred. NEUROLOGICAL: Gross motor function intact sensory function intact, Appropriate for age. MUSCULOSKELETAL: low back nontender, full range of motion. EXTREMITIES: Right knee tenderness, right hip tenderness, with limitation range of motion. SKIN: Color pink, dry, no rash, no lacerations, no abrasions, no contusions. LYMPHATICS: Deferred. Course Quality Measures none Orders Category Date Time Status CT cervical spine wo con Stat Exams 09/13/24 18:[address] head/brain wo con Stat Exams 09/13/24 18:51 Completed XR hip RT w pelvis 2-3V Stat Exams 09/13/24 18:51 Completed XR knee limited RT 2V Stat Exams 09/13/24 18:51 Completed Vital Signs Vital signs: Vital Signs Temperature 98.1 F 09/13/24 19:08 Pulse Rate 73 09/13/24 19:08 Respiratory Rate 18 09/13/24 19:08 Blood Pressure 137/65 H 09/13/24 19:08 Pulse Oximetry (%) 93 L 09/13/24 19:08 Oxygen Delivery Method Room Air 09/13/24 19:08 Discharge Plan Plan Patient Disposition: HOME (Self Care) Disposition Comment: Stable Prescriptions/Referrals Prescriptions/Med Rec: No Action diltiazem HCl [Cardizem CD] 240 MG capsule,extended release 24hr 240 mg PO HS Qty: 0 Metformin Hcl 1,000 MG tablet 1,000 mg PO BID Qty: 0 metoprolol succinate [Toprol XL] 25 MG tablet extended release 24 hr 25 mg PO QDAY Qty: 0 insulin glargine [Lantus Solostar U-100 Insulin] 3 ML insulin pen 60 unit Sub-Q QDAY Qty: 0 hydrochlorothiazide 25 MG tablet 25 mg PO QOD Qty: 0 glipizide 5 MG tablet PO QDAY Qty: 0 Losartan Potassium * (COZAAR *) 50 MG tablet 50 mg PO BID Qty: 0 glipizide 5 MG tablet 2.5 mg PO HS Qty: 0 meclizine 25 mg tablet 25 mg PO BID PRN (Reason: dizziness) Qty: 10 0RF Referrals: Michaela Palma MD [Primary Care Provider] - In 1 week Problem List Clinical Impression: Fall, Neck pain, Knee pain Patient/Caregiver Discharge Instructions Discharge Activity: activity as tolerated Education Materials: Exercises to Prevent Falls Additional Instructions: Thank you for the opportunity for serving you today. You are stable for discharged . You are advised to: Follow-up with your PCP in 1 to 2 days Return to ED for worsening of symptoms Increase oral fluids As your PCP told refer you to a neurology for further evaluation regarding your frequent falls Print Language: Turkish Stand Alone Forms: Marlin Award Info., Patient Portal Info Letter PA/LINDSAY Supervising Physician PA/CORDAGE SALES REPRESENTATIVE Supervising Physician: MD Danielito MDM Patient Acuity Narrative: 88-year-old female patient with significant history of diabetes hypertension, chronic A-fib, came in for evaluation regarding ground-level fall. Patient sustained a ground-level fall after patient lost balance, landing on her back, resulting into neck pain, headache hip pain and knee pain on the right side. No LOC noted no nausea or vomiting noted. Denies any other complaints. Patient is taking blood thinner. No medication was given prior to ER visit. CT scan of the head came back unremarkable CT scan of the neck came back unremarkable x-ray of the hip came back unremarkable x-ray of the knee came back unremarkable results discussed with the family. Patient appears nontoxic and hemodynamically stable. Patient discharged home and instructed to follow-up with primary care provider in 24 to 48 hours. Instructed to return to the emergency department immediately if worsening of symptoms Diagnosis Differential Diagnosis ED Complaint MDM: Neck pain, intracranial bleed, fall, knee fracture hip fracture Diagnoses ruled out: Neck pain, knee pain, status post fall
[2024-09-13 19:08] VITALS: BP 137/65; PULSE 73; RESP 18; TEMP 36.7; O2SAT 93
[2024-09-13 19:10] VITALS: PULSE 87; RESP 18; O2SAT 97
[2024-09-13 19:13] VITALS: BMI 22.9
[2024-09-13 19:48] VITALS: BP 147/61; PULSE 82; RESP 17; O2SAT 97
[2024-09-13 22:38] VITALS: BP 147/64; PULSE 75; RESP 18; TEMP 36.4; O2SAT 98
[2024-09-13 23:19] VITALS: BP 145/72; PULSE 91; RESP 17; O2SAT 96
== END 2024-09-13 23:20 | disposition home or self-care (01) ==
PROVIDERS: Emergency Provider Emergency Medicine; PCP Family Medicine
DX: S19.9XXA Unspecified injury of neck, initial encounter (principal); S79.911A Unspecified injury of right hip, initial encounter; S09.90XA Unspecified injury of head, initial encounter; M25.561 Pain in right knee; W18.30XA Fall on same level, unspecified, initial encounter
CPT/HCPCS: 70450; 72125; 73502; 73560; 99284

== ENCOUNTER → 2024-09-16 | Outpatient (CLI) | payer MEDICARE, BC, SELFPAY ==
--- NOTE | 2024-09-16 | XR_ITS ---
Examination: Thoracolumbar spine 3 views Technique one AP lateral coned lateral lower lumbar spine 3 views Exam date and time: September 16, 2024 1218 hours INDICATIONS: Low back pain radiating to legs with weakness in the legs 3 months. FINDINGS: Thoracic dextroscoliosis 12 degrees No thoracic or lumbar acute fracture Moderate thoracic lumbar spondylosis No significant lumbar disc narrowing IMPRESSION: Thoracic dextroscoliosis 12 degrees Moderate thoracolumbar spondylosis
== END | disposition home or self-care (01) ==
PROVIDERS: PCP Family Medicine; Referring Provider Family Medicine; Visit Provider Family Medicine
DX: M41.84 Other forms of scoliosis, thoracic region (principal); M47.815 Spondylosis without myelopathy or radiculopathy, thoracolumbar region
CPT/HCPCS: 72080

== ENCOUNTER → 2024-12-09 | Outpatient (CLI) | payer MEDICARE, BC, SELFPAY ==
[2024-12-09 10:04] LABS: Basophils # (Auto) 0.0 Thou/mm3 (0.0-0.2); Basophils % (Auto) 1 % (0-2.5); Eosinophils # (Auto) 0.1 Thou/mm3 (0.0-0.5); Eosinophils % (Auto) 1 % (0-10); Hematocrit 35.4 % (36.0-46.0); Hemoglobin 11.7 g/dL (12.0-16.0); Immature Granulocytes Auto 0.03 Thou/mm3 (0.00-0.00); Lymphocytes # (Auto) 2.7 Thou/mm3 (1.0-4.8); Lymphocytes % (Auto) 39 % (10-50); Mean Corpuscular HGB Conc 33.1 g/dl (31.0-37.0); Mean Corpuscular Hemoglobin 31.4 pg (25.0-35.0); Mean Corpuscular Volume 95 fL (80-100); Monocytes # (Auto) 0.6 Thou/mm3 (0.0-0.8); Monocytes % (Auto) 9 % (0-12); Neutrophils # (Auto) 3.5 Thou/mm3 (1.8-7.7); Neutrophils % (Auto) 51 % (37-80); Nucleated Red Blood Cell # 0.00 Thou/mm3 (0.00-0.00); Nucleated Red Blood Cell % 0 /100 WBC (0); Platelet Count 281 Thou/mm3 (140-440); RDW Standard Deviation 46.4 fL (36.4-46.3); Red Blood Count 3.73 Miln/mm3 (4.00-5.20); White Blood Count 6.9 Thou/mm3 (3.6-11.0)
[2024-12-09 10:32] LABS: Vitamin D 25 Hydroxy Total 57.5 ng/mL (7.3-40.2)
[2024-12-09 10:37] LABS: Alanine Aminotransferase 13 U/L (10-49); Albumin, Serum 4.4 gm/dL (3.4-4.8); Alkaline Phosphatase 42 U/L (46-116); Anion Gap 10 (7-16); Aspartate Amino Transferase 21 U/L (0-34); BUN/Creatinine Ratio 16 Ratio (12-20); Bilirubin,Direct 0.2 mg/dL (0.0-0.3); Bilirubin,Total 0.7 mg/dL (0.3-1.2); Blood Urea Nitrogen 14 mg/dL (9-23); Calcium 9.9 mg/dL (8.3-10.6); Carbon Dioxide 28.4 mMol/L (20.0-31.0); Cardiac Risk Estimate 2.8 RATIO (3.7-5.6); Chloride 99 mMol/L (98-107); Cholesterol 164 mg/dL (132-200); Creatinine (Component) 0.9 mg/dL (0.6-1.3); Glucose 131 mg/dL (74-106); HDL Cholesterol 59 mg/dL (40-60); LDL Cholesterol,Calculated 80 mg/dL (0-130); Osmolality,Calculated 276 (275-295); Phosphorous 3.6 mg/dL (2.4-5.1); Potassium 4.3 mMol/L (3.4-5.1); Sodium 137 mMol/L (136-145); Thyroid Stimulating Hormone 1.81 uIU/mL (0.55-4.78); Total Protein 6.7 gm/dL (5.7-8.2); Triglycerides 126 mg/dL (30-150); eGFR > 60 See Note
== END | disposition home or self-care (01) ==
LOC: COPL 09:18
PROVIDERS: PCP Family Medicine; Referring Provider Specialist; Visit Provider Specialist
DX: E55.9 Vitamin D deficiency, unspecified (principal); E78.00 Pure hypercholesterolemia, unspecified; I11.0 Hypertensive heart disease with heart failure; E03.9 Hypothyroidism, unspecified
CPT/HCPCS: 36415; 80048; 80061; 80076; 82306; 84100; 84443; 85025

== ENCOUNTER → 2025-01-02 | Outpatient (CLI) | payer MEDICARE, BC, SELFPAY ==
[2025-01-02 12:06] LABS: Basophils # (Auto) 0.1 Thou/mm3 (0.0-0.2); Basophils % (Auto) 1 % (0-2.5); Eosinophils # (Auto) 0.0 Thou/mm3 (0.0-0.5); Eosinophils % (Auto) 0 % (0-10); Hematocrit 36.4 % (36.0-46.0); Hemoglobin 12.3 g/dL (12.0-16.0); Immature Granulocytes Auto 0.01 Thou/mm3 (0.00-0.00); Lymphocytes # (Auto) 3.8 Thou/mm3 (1.0-4.8); Lymphocytes % (Auto) 45 % (10-50); Mean Corpuscular HGB Conc 33.8 g/dl (31.0-37.0); Mean Corpuscular Hemoglobin 31.4 pg (25.0-35.0); Mean Corpuscular Volume 93 fL (80-100); Monocytes # (Auto) 0.9 Thou/mm3 (0.0-0.8); Monocytes % (Auto) 10 % (0-12); Neutrophils # (Auto) 3.8 Thou/mm3 (1.8-7.7); Neutrophils % (Auto) 44 % (37-80); Nucleated Red Blood Cell # 0.00 Thou/mm3 (0.00-0.00); Nucleated Red Blood Cell % 0 /100 WBC (0); Platelet Count 331 Thou/mm3 (140-440); RDW Standard Deviation 44.3 fL (36.4-46.3); Red Blood Count 3.92 Miln/mm3 (4.00-5.20); White Blood Count 8.5 Thou/mm3 (3.6-11.0)
[2025-01-02 12:24] LABS: Albumin, Serum 4.4 gm/dL (3.4-4.8); Anion Gap 10 (7-16); BUN/Creatinine Ratio 16 Ratio (12-20); Blood Urea Nitrogen 14 mg/dL (9-23); Calcium 9.8 mg/dL (8.3-10.6); Calcium (Corrected) 9.8 mg/dL (8.5-10.1); Carbon Dioxide 26.8 mMol/L (20.0-31.0); Chloride 96 mMol/L (98-107); Creatinine (Component) 0.9 mg/dL (0.6-1.3); Glucose 128 mg/dL (74-106); Osmolality,Calculated 268 (275-295); Phosphorous 4.0 mg/dL (2.4-5.1); Potassium 4.0 mMol/L (3.4-5.1); Sodium 133 mMol/L (136-145); eGFR > 60 See Note
== END | disposition home or self-care (01) ==
LOC: COPL 10:44
PROVIDERS: PCP Family Medicine; Referring Provider Specialist; Visit Provider Specialist
DX: I11.9 Hypertensive heart disease without heart failure (principal)
CPT/HCPCS: 36415; 80069; 85025